=== PATIENT | female | born 1955 | race Caucasian/White ===

== ENCOUNTER 2018-07-12 09:35 | Emergency (ER) | payer BC, SELFPAY ==
[2018-07-12 09:37] VITALS: BP 147/90; PULSE 77; RESP 14; TEMP 36.5; O2SAT 100
--- NOTE | 2018-07-12 09:53 | DI.RAD_ITS ---
SYMPTOM/DIAGNOSIS: FATIGUE SOB PA AND LATERAL CHEST: 07/12/18 Lungs appear mildly hyperinflated but clear. No pleural effusion seen. Cardiac size is within normal limits. CONCLUSION: Negative examination of the chest
--- NOTE | 2018-07-12 09:53 | DI.CT_ITS ---
SYMPTOM/DIAGNOSIS: DIZZY, FATIGUE CRANIAL CT: 07/[address] was performed. There is moderate generalized cerebral atrophy. There is no evidence of acute intracranial hemorrhage, mass effect or midline shift. The visualized paranasal sinuses and mastoid air cells are clear. Temporal bone structures and orbital structures appear intact. CONCLUSION: No evidence of acute intracranial process.
[2018-07-12] MEDS: Normal Saline 1,000 ML 1000 ML IV (10:15)
[2018-07-12 10:28] LABS: Absolute Basophil Count 0.02 k/cumm (0.0-0.2); Absolute Eosinophil Count 0.08 k/cumm (0.0-0.7); Absolute Lymphocyte Count 0.96 k/cumm (1.2-3.4); Absolute Monocyte Count 0.43 k/cumm (0.11-0.7); Absolute Neutrophil Count 1.56 k/cumm (1.2-6.7); Basophils % 0.7; Eosinophils % 2.6; HCT 41.4 % (36.0-46.0); HGB 13.4 g/dL (12.0-15.5); Lymphocytes % 31.5; Mean Corp. HGB Concentration 32.4 g/dL (32.0-36.0); Mean Corpuscular Hemoglobin 30.2 pg (27.0-33.0); Mean Corpuscular Volume 93.5 fL (80-95); Mean Platelet Volume 11.3 fL (8.0-11.0); Monocytes % 14.1; Neutrophils % 51.1; Platelet Count 146 x1000/uL (130-400); RBC 4.43 m/cumm (4.00-5.20); RBC Distribution Width 13.4 % (11.7-14.6); White Blood Cell Count 3.05 k/cumm (4.4-10.8)
[2018-07-12] MEDS: Meclizine 25 MG TAB PO (10:32)
[2018-07-12 10:51] LABS: ALT 30 U/L (12-78); AST 26 U/L (15-37); Albumin 3.6 g/dL (3.4-5.0); Alkaline Phosphatase 59 U/L (46-116); Anion Gap 9.7 mmol/L (3-11); BUN 11 mg/dL (7-18); Bilirubin, Total 0.3 mg/dL (0.2-1.0); CO2 30.3 mmol/L (21.0-32.0); CREATININE 0.63 mg/dL (0.55-1.02); Calcium 8.9 mg/dL (8.5-10.1); Chloride 102 mmol/L (98-107); Glucose 88 mg/dL (70-100); Lipase 137 U/L (73-393); Potassium 3.4 mmol/L (3.5-5.1); Sodium 142 mmol/L (136-145); TSH 2.83 uIU/mL (0.358-3.74); Total Protein 7.4 g/dL (6.4-8.2)
[2018-07-12 10:58] LABS: Troponin I < 0.02 ng/mL (0.00-0.06)
--- NOTE | 2018-07-12 11:02 | DI.VRAD_ITS ---
EXAM: CT Head Without Intravenous Contrast EXAM DATE/TIME: 07/12/2018 9:55 AM CLINICAL HISTORY: 62 years old, female; Signs and symptoms; Dizziness TECHNIQUE: Axial computed tomography images of the head/brain without intravenous contrast. Coronal and sagittal reformatted images were created and reviewed. COMPARISON: No relevant prior studies available. FINDINGS: Brain: Central and cortical brain atrophy evident, appropriate for patient age. 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 No acute intracranial hemorrhage. Ventricles: Normal. No ventriculomegaly. Bones/joints: Normal. No acute fracture. Sinuses: Normal as visualized. No acute sinusitis. Mastoid air cells: Normal as visualized. No mastoid effusion. Soft tissues: Normal. IMPRESSION: No acute intracranial abnormality. Dictated and Authenticated by: Christy Marino MD. Ordering:ABRAHAM SQUIRES MD
--- NOTE | 2018-07-12 11:03 | DI.VRAD_ITS ---
EXAM: XR Chest, 2 Views EXAM DATE/TIME: 07/12/2018 9:55 AM CLINICAL HISTORY: 62 years old, female; Signs and symptoms; Other: Dizziness TECHNIQUE: XR of the chest, 2 views. COMPARISON: No relevant prior studies available. FINDINGS: Lungs: Unremarkable. No consolidation. Pleural space: Unremarkable. No pleural effusion. No pneumothorax. Heart/Mediastinum: Unremarkable. No cardiomegaly. Bones/joints: Unremarkable for patient's age. IMPRESSION: No acute findings. Dictated and Authenticated by: Christy Marino MD. Ordering:ABRAHAM SQUIRES MD
[2018-07-12 11:05] VITALS: BP 131/65; PULSE 63; RESP 14; TEMP 36.6; O2SAT 100
--- NOTE | 2018-07-12 12:00 | ED.GENADUL_ITS ---
Discharge Plan Disposition Patient Disposition: HOME Condition: Good Discharge Details Chief Complaint: Nausea/Vomit/Diar Clinical Impression: Malaise, Meniere disease Primary Care Provider: Patricio Alcocer ED Provider: Bonilla Franco Home Meds and New Rx's Prescriptions: New meclizine 25 mg tablet 25 mg PO TID Qty: 30 RF: 0 No Action aspirin [Aspirin Low Dose] 81 mg Tablet,Delayed Release (Dr/Ec) 81 mg PO DAILY RF: 0 venlafaxine [Effexor XR] 75 mg Capsule,Extended Release 24hr 75 mg PO BID RF: 0 Discharge Instructions Instructions: Meniere Disease (ED) Additional Instructions: Please avoid caffeine, and salty foods. Please take the medication as directed. Please follow-up with your primary care soon as possible. If you notice any worsening of your symptoms, or any new symptoms such as vomiting, diarrhea, fever, chills, shortness of breath, chest pain, numbness, weakness, or fainting , please return immediately to the emergency department for reevaluation. Please follow up with your primary care provider as soon as possible for reassessment and reevaluation. As always, it was a pleasure participating in your medical care today. Referrals: Patricio Alcocer PA [Primary Care Provider] - Discharge Data Discharge Date/Time-TO BE ENTERED AT DEPARTURE: 07/12/18 13:23 Medical Decision Making This is a pleasant 62-year-old female who presents for evaluation of decreased energy, fatigue, one episode of vomiting, and slight unsteadiness in her walking. She has some associated tinnitus on history. Physical exam demonstrated no focal abnormalities for the neurologic or physical exam. She did have horizontal nystagmus, however test of skew showed no significant vertical correction, there was no evidence of rotatory or vertical nystagmus, she clearly demonstrated normal reflexes and no focal neurologic abnormalities. Laboratory workup was relatively benign with no signs of severe electrolyte derangement, leukopenia, thrombocytopenia, or renal dysfunction. Thyroid levels were benign. Imaging workup demonstrates a CT scan of the head without contrast per virtual radiology no acute intracranial abnormality. No evidence of stroke. Chest x-ray demonstrates no acute findings. EKG was benign. Upon rehydration and meclizine patient was starting to feel better. I am unsure as to the exact etiology of her fatigue, but I can see no clear source here. I feel that we have ruled out any significant acute component with a negative troponin, benign EKG, negative imaging workup of her head, no signs of thyroid or hemoglobin abnormalities. I encouraged continued rehydration, and meclizine use for her dizziness as there may be a component of M?ni?re's disease or BPPV. We encouraged prompt follow-up with her primary care provider. I have extensively reviewed the treatment plan and discharge instructions with the patient. I have addressed all patient concerns at this time. The patient was made aware of what symptoms to monitor for that would warrant a return to the emergency department. Discussed the plan with the patient, they demonstrate verbal understanding and agreement with our assessment and plan at this time. EKG 10: 7 Rate 70, intervals normal, sinus rhythm, no ST elevations or depressions, no T wave inversions, no Q waves. Normal EK HPI General Date/Time Provider Initiated Documentation: 07/12/18 09:53 . HPI Narrative: This is a pleasant 62-year-old female who presents today for evaluation of fatigue. Patient states that for the last 4 days she has had decrease in her regular energy levels, she vomited one time on Friday. She has had minimal sore throat. She states that she mainly just does not feel like she is under energy to do what she normally wants. She does admit to occasional night sweats, but denies any fever or chills. She does admit to some unsteadiness when she walks, but denies any symptoms of dizziness or difficulty ambulating. She denies any symptoms of room spinning. She does have ringing in her ears which she states is gradually been worsening over the last 2-3 days. The patient denies any headache, vision changes, chest pain, cough, shortness of breath, arm pain neck pain or shoulder pain, vomiting, diarrhea, numbness, tingling, weakness. She denies any trauma, previous symptoms similar to this, history of stroke, history of cardiac disease, family history of stroke, or any other complaints. She has had no recent medication changes. She denies any recent pertinent history for surgery, pertinent family history, or IV or illicit drug use. Related Data Home Medications Medication Instructions Recorded Confirmed aspirin [Aspirin Low Dose] 81 mg PO DAILY 07/12/18 07/12/18 meclizine 25 mg PO TID #30 tab 07/12/18 venlafaxine [Effexor XR] 75 mg PO BID 07/12/18 07/12/18 Previous Rx's Medication Instructions Recorded meclizine 25 mg PO TID #30 tab 07/12/18 Allergies Allergy/AdvReac Type Severity Reaction Status Date / Time ibuprofen [From Motrin] AdvReac Intermediate Hives Unverified 07/12/18 09:50 acetaminophen AdvReac Mild tinnitis Unverified 07/12/18 09:49 [From Excedrin PM] diphenhydramine AdvReac Mild tinnitis Unverified 07/12/18 09:49 [From Excedrin PM] General Stated Complaint: Nausea/Vomit/Diar OPAL: 3 Review of Systems Review of Systems All systems reviewed & are unremarkable except as noted in HPI and below PFSH Social History Smoking/Tobacco Use Status: Never Exam Narrative Exam Narrative: 1.Const: Well-nourished, Well-developed, appearing stated age 2.Eyes: PERRL, no conjunctival injection, and symmetrical lids. Cerebellar function testing is normal. The patient demonstrates a normal hints exam with no findings concerning for a central event. No vertical nystagmus. The head impulse test is negative for any significant central abnormality. Normal test of skew. No suggestion of a central cerebellar event. Patient did have some horizontal fatigable nystagmus. 3.ENT: Atraumatic external nose and ears. Moist MM. Neck: Symmetric, trachea midline, No thyromegaly. 4.CVS: +S1/S2, No murmurs or gallops. Peripheral pulses 2+ and equal in all extremities. Brisk capillary refill in all extremities. 5.RESP: Unlabored respiratory effort. Clear to auscultation bilaterally. No wheezes rales or rhonchi 6.GI: Soft, Nontender/Nondistended, No hepatosplenomegaly. No guarding or rebound. 7.MSK: Normocephalic/Atraumatic, Extremities w/o deformity or ttp No cyanosis or clubbing, Normal movement of all extremities 8.Skin: Warm, Dry. No rashes or lesions. 9.Neuro: will call order clerk II-XII grossly intact. Sensation grossly intact, no focal neurologic deficits. All 6 cardinal planes of vision or fully intact. No evidence of vertical or rotatory nystagmus. The patient demonstrated a normal [id number], good dexterity. There was no evidence of dysdiadochokinesia. Patient was able to ambulate without difficulty. there was no wide-based gait. Romberg, and [id number] are both normal on testing. Sensation was intact bilaterally as well as muscle strength bilaterally for all extremities. Patient was able to verbalize butter cup with no slurring, or miss pronunciation. 10.Psych: (AAO) x3. Appropriate mood and affect Course Vital Signs Temperature 36.5 C 07/12/18 09:37 Pulse 77 07/12/18 09:37 Respiratory Rate 14 07/12/18 09:37 Blood Pressure 147/90 H 07/12/18 09:37 Pulse Oximetry 100 07/12/18 09:37 Temperature 36.6 C 07/12/18 11:05 Temperature Source Skin 07/12/18 11:05 Pulse 63 07/12/18 11:05 Respiratory Rate 14 07/12/18 11:05 Respiratory Effort 07/12/18 09:54 Blood Pressure 131/65 07/12/18 11:05 Blood Pressure Position Sitting 07/12/18 09:37 Pulse Oximetry 100 07/12/18 11:05 Oxygen Delivery Method Room Air 07/12/18 11:05 Oxygen Flow Rate 0 07/12/18 11:05 Pain Level 0 07/12/18 11:05 Lab/Test Results Lab/Test Results: Laboratory Tests Range/Units 07/12/18 07/12/18 10:15 10:15 WBC (4.4-10.8) k/cumm 3.05 L RBC (4.00-5.20) m/cumm 4.43 Hgb (12.0-15.5) g/dL 13.4 Hct (36.0-46.0) % 41.4 MCV (80-95) fL 93.5 MCH (27.0-33.0) pg 30.2 MCHC (32.0-36.0) g/dL 32.4 RDW (11.7-14.6) % 13.4 Plt Count (130-400) x1000/uL 146 MPV (8.0-11.0) fL 11.3 H Immature Gran % 0.0 Neutrophils % 51.1 Lymphocytes % 31.5 Monocytes % 14.1 Eosinophils % 2.6 Basophils % 0.7 Absolute Neutrophils (1.2-6.7) k/cumm 1.56 Absolute Lymphocytes (1.2-3.4) k/cumm 0.96 L Absolute Monocytes (0.11-0.7) k/cumm 0.43 Absolute Eosinophils (0.0-0.7) k/cumm 0.08 Absolute Basophils (0.0-0.2) k/cumm 0.02 Sodium (136-145) mmol/L 142 Potassium (3.5-5.1) mmol/L 3.4 L Chloride (98-107) mmol/L 102 Carbon Dioxide (21.0-32.0) mmol/L 30.3 Anion Gap (3-11) mmol/L 9.7 BUN (7-18) mg/dL 11 Creatinine (0.55-1.02) mg/dL 0.63 Estimated GFR/1.73 m2 (mL/min/1.73m2) >= 60.00 Glucose (70-100) mg/dL 88 Calcium (8.5-10.1) mg/dL 8.9 Total Bilirubin (0.2-1.0) mg/dL 0.3 AST (15-37) U/L 26 ALT (12-78) U/L 30 Alkaline Phosphatase (46-116) U/L 59 Troponin I (0.00-0.06) ng/mL < 0.02 Total Protein (6.4-8.2) g/dL 7.4 Albumin (3.4-5.0) g/dL 3.6 Lipase (73-393) U/L 137 TSH (0.358-3.74) uIU/mL 2.83
[2018-07-12 12:26] VITALS: BP 135/70; PULSE 64; RESP 14; TEMP 36.7; O2SAT 100
--- NOTE | 2018-07-12 12:48 | NUR.NOTE ---
pt moved to [facility] while waiting for d/c paperworkNursing Note:
[2018-07-12 13:20] VITALS: BP 135/70; PULSE 64; RESP 14; TEMP 36.7; O2SAT 100
== END 2018-07-12 13:23 | disposition home or self-care (01) ==
PROVIDERS: Emergency Provider Student in an Organized Health Care Education/Training Program; PCP Physician Assistant Medical
DX: R53.81 Other malaise (principal); H81.03 Meniere's disease, bilateral; R11.10 Vomiting, unspecified
CPT/HCPCS: 36415; 80053; 83690; 93005; 96360; 96361; 99285; 70450; 71046; 84443; 84484; 85025; 93010

== ENCOUNTER 2019-03-11 11:09 | Outpatient (REF) | payer BC, SELFPAY ==
--- NOTE | 2019-03-11 11:00 | PAPFT_PTH ---
PATIENT: Hannah Haq LOC: [facility] U#:[id number] AGE/SX: 63/F ROOM: RE03/11/[address]: Tiffanie Montiel : 1955 BED: DIS: 03/11/2019 SPEC #: [id number] RECD: 03/11/19 17:50 STATUS: [place] RECris #: [id number] GABRIELA: 03/11/19 11:[address]: Tiffanie Montiel DEPT: [facility] Cytology RECD BY: Mora Yadav ENTERED: 03/11/19 17:50 SP TYPE: PAPFT KEO DR: Patricio Alcocer Tissues: 1 - CX/ENDOCX FOR PAP SMEARS Procedures: PAP THIN PREP/UVM Screening HPV DNA PROBE Comments: [id number]
== END 2019-03-11 11:29 ==
LOC: LBN 11:09
PROVIDERS: PCP Physician Assistant Medical; Visit Provider Obstetrics & Gynecology Gynecology
DX: Z12.4 Encounter for screening for malignant neoplasm of cervix (principal); Z11.51 Encounter for screening for human papillomavirus (HPV)
CPT/HCPCS: 88142; 87624

== ENCOUNTER 2020-08-28 16:50 | Outpatient (REF) | payer BC, SELFPAY ==
[2020-08-31 14:49] LABS: Patient Race White; SARS-CoV-2 Specimen Source Nasal
[2020-09-01 08:30] LABS: SARS-CoV-2 RNA Detected (Undetected)
== END 2020-08-28 17:10 ==
LOC: NCHCN 16:50
PROVIDERS: PCP Physician Assistant Medical; Visit Provider Physician Assistant Medical
DX: Z20.828 Contact with and (suspected) exposure to other viral communicable diseases (principal)
CPT/HCPCS: U0003

== ENCOUNTER 2021-09-10 10:50 | Outpatient (REF) | payer BC, SELFPAY ==
[2021-09-10 14:47] LABS: Abs Immature Grans 0.01 10^3/uL (0.0-0.06); Absolute Basophil Count 0.04 10^3/uL (0.0-0.2); Absolute Eosinophil Count 0.14 10^3/uL (0.0-0.7); Absolute Lymphocyte Count 1.27 10^3/uL (1.2-3.4); Absolute Monocyte Count 0.42 10^3/uL (0.1-0.8); Absolute Neutrophil Count 2.94 10^3/uL (1.2-6.7); Basophils % 0.8; Eosinophils % 2.9; HCT 41.7 % (36.0-46.0); HGB 13.4 g/dL (11.2-15.7); Immature Grans % 0.2; Lymphocytes % 26.3; MCH 30.2 pg (27.0-33.0); MCHC 32.1 % (32.0-36.0); MCV 94.1 fL (80-95); Monocytes % 8.7; Neutrophils % 61.1; Nucleated RBC 0 %; Platelet Count 194 10^3/uL (130-400); RBC 4.43 10^6/uL (3.93-5.22); RDW-SD 41.9 fL; WBC 4.82 10^3/uL (4.4-10.8)
[2021-09-10 15:16] LABS: Anion Gap 6.6 mmol/L (3-11); BUN 23 mg/dL (7-18); CO2 31.4 mmol/L (21.0-32.0); CREATININE 0.7 mg/dL (0.55-1.02); Calcium 9.5 mg/dL (8.5-10.1); Calculated LDL 149 mg/dL (<100); Chloride 104 mmol/L (98-107); Cholesterol 250 mg/dL (<200); Glucose 80 mg/dL (74-106); HDL Cholesterol 91 mg/dL (40-60); Potassium 4.3 mmol/L (3.5-5.1); Sodium 142 mmol/L (136-145); TSH (W/Ref FT4) 1.61 uIU/mL (0.36-3.74); Triglyceride 50 mg/dL (<150)
== END 2021-09-10 10:51 | disposition home or self-care (01) ==
LOC: NCHCN 10:50
PROVIDERS: PCP Physician Assistant Medical; Visit Provider Physician Assistant Medical
DX: L65.9 Nonscarring hair loss, unspecified (principal); Z13.220 Encounter for screening for lipoid disorders; Z13.9 Encounter for screening, unspecified
CPT/HCPCS: 80048; 80061; 84443; 85025

== ENCOUNTER 2023-04-09 17:13 | Outpatient (REF) | payer MEDICARE, SELFPAY ==
[2023-04-09 20:50] LABS: ALT 25 U/L (14-59); AST 25 U/L (15-37); Alkaline Phosphatase 67 U/L (46-116); Anion Gap 8.9 mmol/L (3-11); BUN 24 mg/dL (7-18); Bilirubin, Total 0.3 mg/dL (0.2-1.0); CO2 28.1 mmol/L (21.0-32.0); CREATININE 0.7 mg/dL (0.55-1.02); Calcium 9.2 mg/dL (8.5-10.1); Calculated LDL 131 mg/dL (<100); Chloride 105 mmol/L (98-107); Cholesterol 226 mg/dL (<200); Estimated GFR 93.56 (mL/min/1.73m2); Glucose 89 mg/dL (74-106); HDL Cholesterol 79 mg/dL (40-60); Potassium 4.1 mmol/L (3.5-5.1); Sodium 142 mmol/L (136-145); Total Protein 7.8 g/dL (6.4-8.2); Triglyceride 81 mg/dL (<150)
== END 2023-04-09 17:14 | disposition home or self-care (01) ==
LOC: NCHCN 17:13
PROVIDERS: PCP Physician Assistant Medical; Visit Provider Physician Assistant Medical
DX: Z13.9 Encounter for screening, unspecified (principal)
CPT/HCPCS: 80053; 80061

== ENCOUNTER → 2023-06-05 01:24 | Outpatient (CLI) | payer MEDICARE, SELFPAY ==
--- NOTE | 2023-06-05 | DI.DEXA_ITS ---
Exam(s) XR DEXA BONE DENSITY W/WO ARACELIS EXAM: XR DEXA BONE DENSITY W/WO ARACELIS CLINICAL HISTORY: SCREENING FOR OSTEOPOROSIS IN POSTMENOPAUSAL WOMAN,Z78.0 TECHNIQUE: COMPARISON: DX DEXA BONE DENSITY WITH ARACELIS from 11/07/2014 FINDINGS: Lateral Spine Image: Unremarkable. No compression deformities identified. Left hip: Total T-Score: -1.0. This compares to 0.5 on the prior examination. Total Z-Score: 0.5 T- and Z-scores: Within normal limits. Lumbar Spine: Total T-Score: -0.2. This compares to 0.8 on the prior examination. Total Z-Score: 1.9 T- and Z-scores: Within normal limits. IMPRESSION: No evidence of osteoporosis.
--- NOTE | 2023-06-05 11:50 | DI.MAMMO_ITS ---
Exam(s) MAMMO SCREENING EXAM: MAMMO SCREENING CLINICAL HISTORY: SCREENING, Z12.31. TECHNIQUE: Bilateral full field digital CC and MLO mammographic images were obtained with 3D tomosyn thesis and utilizing computer aided detection (CAD). COMPARISON: Prior mammograms were reviewed. FINDINGS: There has been no significant change in the appearance and distribution of the fibroglandular tissue. There are no new spiculated masses nor malignant appearing microcalcification groups. There is no significant architectural distortion nor skin thickening-retraction. IMPRESSION: No radiographic evidence of malignancy. BI-RADS Category 1 - Negative Breast Density - Category B - Scattered areas of fibroglandular density Breast density Category C or D implies that the patient has dense breast tissue. Dense breast tissue can make it harder to find cancer on a mammogram. Dense breast tissue is also associated with an incr eased risk of breast cancer. This information about the result of the mammogram report was provided to the patient to raise their awareness. Use this report when you speak with the patient about their risks for breast cancer, which includes their family history. At that time, you may recommend additional screening tests (Ultrasoun d or MRI) as these tests may add significant information. A negative radiographic report should not delay biopsy if a dominant or clinically suspicious mass is present. Up to ten percent of cancers are not identified on mammography. A negative report may reinforce clinical impression. Adenosis and dense breasts may obscure an underlying neoplasm. False positive reports average 6 to 10%. Patient will receive a letter notifying them of these results.
== END ==
PROVIDERS: PCP Physician Assistant Medical; Visit Provider Physician Assistant Medical
DX: Z12.31 Encounter for screening mammogram for malignant neoplasm of breast (principal); Z13.820 Encounter for screening for osteoporosis; Z78.0 Asymptomatic menopausal state
CPT/HCPCS: 77063; 77067; 77080

== ENCOUNTER 2025-07-12 17:35 | Outpatient (REF) | payer MEDICARE, SELFPAY ==
[2025-07-12 14:48] LABS: HCT 41.3 % (36.0-46.0); HGB 13.6 g/dL (11.2-15.7); MCH 31.3 pg (27.0-33.0); MCHC 32.9 % (32.0-36.0); MCV 95 fL (80-95); MPV 11.2 fL (8.0-11.0); Platelet Count 197 10^3/uL (130-400); RBC 4.34 10^6/uL (3.93-5.22); RDW 12.2 % (11.7-14.6); RDW-SD 42.5 fL; WBC 3.93 10^3/uL (4.4-10.8)
[2025-07-12 15:13] LABS: Hemoglobin A1C 5.2 % (<5.7)
[2025-07-12 15:48] LABS: ALT 23 U/L (14-59); AST 20 U/L (15-37); Albumin 4.0 g/dL (3.4-5.0); Alkaline Phosphatase 53 U/L (46-116); Anion Gap 5.8 mmol/L (3-11); BUN 17 mg/dL (7-18); Bilirubin, Total 0.3 mg/dL (0.2-1.0); CO2 33.2 mmol/L (21.0-32.0); Calcium 9.4 mg/dL (8.5-10.1); Chloride 102 mmol/L (98-107); Cholesterol 190 mg/dL (<200); Estimated GFR 92.41 (mL/min/1.73m2); Glucose 93 mg/dL (74-106); Potassium 4.5 mmol/L (3.5-5.1); Sodium 141 mmol/L (136-145); Total Protein 7.2 g/dL (6.4-8.2); Triglyceride 79 mg/dL (<150)
[2025-07-12 16:10] LABS: Vitamin D 25 Total 106 ng/mL (30-100)
[2025-07-13 05:02] LABS: Calculated LDL 112 mg/dL (<100); HDL Cholesterol 63 mg/dL (>or=50)
== END 2025-07-12 17:36 | disposition home or self-care (01) ==
LOC: NCHCN 17:35
PROVIDERS: PCP Physician Assistant Medical; Visit Provider Physician Assistant Medical
DX: Z13.6 Encounter for screening for cardiovascular disorders (principal); Z13.1 Encounter for screening for diabetes mellitus; F32.9 Major depressive disorder, single episode, unspecified
CPT/HCPCS: 80053; 80061; 82306; 85027; 83036

== ENCOUNTER 2025-07-27 00:10 | Outpatient (CLI) | payer MEDICARE, SELFPAY ==
--- NOTE | 2025-07-27 | DI.MAMMO_ITS ---
Exam(s) MAMMO SCREENING EXAM: MAMMO SCREENING CLINICAL HISTORY: SCREENING, Z12.31 TECHNIQUE: Bilateral full field digital CC and MLO mammographic images were obtained with 3D tomosynthesis and utilizing computer aided detection (CAD). COMPARISON: Comparison is made with prior examinations. FINDINGS: Masses/Architectural Distortion: No suspicious masses or areas of architectural distortion are present. Microcalcifications: No suspicious pleomorphic-type are seen. Skin Thickening/Nipple Retraction: None. IMPRESSION: 1. No significant interval change with no specific features of malignancy noted. 2. Unless there is more urgent need, screening mammography is recommended, as per [place] guidelines. BI-RADS Category 1 - Negative Breast Density - Category B - There are scattered areas of fibroglandular density. Breast density Category C or D implies that the patient has dense breast tissue. Dense breast tissue can make it harder to find cancer on a mammogram. Dense breast tissue is also associated with an increased risk of breast cancer. This information about the result of the mammogram report was provided to the patient to raise their awareness. Use this report when you speak with the patient about their risks for breast cancer, which includes their family history. At that time, you may recommend additional screening tests (Ultrasound or MRI) as these tests may add significant information. A negative radiographic report should not delay biopsy if a dominant or clinically suspicious mass is present. Up to ten percent of cancers are not identified on mammography. A negative report may reinforce clinical impression. Adenosis and dense breasts may obscure an underlying neoplasm. False positive reports average 6 to 10%. Patient will receive a letter notifying them of these results.
== END 2025-07-27 00:30 ==
PROVIDERS: PCP Physician Assistant Medical; Visit Provider Physician Assistant Medical
DX: Z12.31 Encounter for screening mammogram for malignant neoplasm of breast (principal)
CPT/HCPCS: 77063; 77067